=== PATIENT | female | born 1945 | race Caucasian/White ===

== ENCOUNTER 2024-02-08 15:30 | Outpatient (RCR) | payer MEDICARE, BC, SELFPAY ==
--- NOTE | 2024-02-08 16:30 | PT.OPEX ---
PT [place] [facility] Eval PT [facility] Outpatient Eval Start: 01/23/24 10:54 Freq: Status: Active Protocol: Document 02/08/24 12:40 HELADIO (Rec: 02/08/24 16:29 HELADIO [id number]) E-signed By Rebeca Maloney PT Physical Therapy Outpatient Evaluation Insurance Information Recert Due Date 05/07/24 Insurance Name Medicare B Medical Diagnosis LEFT KNEE OA Treating Diagnosis LEFT KNEE OA PREOPERATIVE VISIT Referring MD [place] Subjective Subjective PATIENT REPORTS SEVERAL YEAR Y /O OF BILATERAL KNEE PAIN WITH RIGHT REPLACED IN [place] AND LEFT KNEE SCHEDULED FOR . SHE HAS HAD CORTISONE INJECTION EVERY 3-4 MONTHS OVER THE PAST 2 YEARS AND IS NOW READY TO HAVE THE KNEE REPLACED. Date of Surgery (If applicable) 02/21/24 Current Work Status Retired Precautions Treatment Precautions/Contraindications PMHX: Arthritis, Breast cancer , Congestive heart failure, Coronary artery disease, Depression, Diabetes, Heart attack, High blood pressure, High cholesterol,Neuropathy, RIGHT TKA, BILATERAL SHOULDER PAIN Weight Bearing Status Full Weight Bearing Therapy Limitations/Systems Review Not Limited Assessment Assessment/Impression PATIENT IS A 78 YO REFERRED BY TO PROVIDE PREOPERATIVE TEACHING FOR AN UPCOMING LEFT TKA ON 02/21/24; PMHX LISTED ABOVE; EXTENSIVE DISCUSSION AND EDUCATION REGARDING PATHOPHYSIOLOGY, SURGICAL PROCEDURE, AND TYPICAL PRESENTATION POST OPERATIVE. SINCE SHE HAS HAD HER RIGHT KNEE REPLACED, WE REVIEWED HOME MODIFICATIONS, USE OF ASSISTIVE DEVICE, FALL PREVENTION, AND PAIN MGMT VIA ICE, ELEVATION AND PO PAIN MEDS. PROVIDED A LIST OF DME AND RECOMMENDED FWW, GRABBER, AND SOCK AID ALONG WITH SUCTION GRAB BARS FOR SHOWER/ BATH. PATIENT PROVIDED AN OPPORTUNITY TO ASK QUESTIONS AND PROVIDED DEMONSTRATION ALONG WITH PRACTICE USING FWW WELL A STAIR TRAINING WITH HAND RAILS. PERFORMED AND EDUCATED PATIENT REGARDING HER HEP AND INSTRUCTED HER TO BEGIN TODAY TO FAMILIARIZE HERSELF WHEN HER KNEE IS NOT SWOLLEN AND PAINFUL. PATIENT VERBALIZED UNDERSTANDING OF ALL SKILLED INSTRUCTION AND WILL FOLLOW UP POST OPERATIVELY AT ANOTHER CLINIC FOR HER CARE. Primary Functional Limitations WALKING, STAIRS, STANDING, STOOPING, KNEELING Plan of Care Rehabilitation Potential Fair Physical Therapy Goals 1. PATIENT WILL VERBALIZED UNDERSTANDING OF SYMPTOM MGMT VIA ICE, PO RX MEDS, ELEVATION AND REST. 2. PATIENT WILL DEMONSTRATE AN UNDERSTANDING OF HER PRE/POST OPERATIVE HEP. Coordination/Communication With Referral Source Treatment Plan/Direct Interventions Ice/Cold/Vasopneumatic,Self- Care/Home Management, Therapeutic Activities, Therapeutic Exercises Frequency/Duration 1 VISIT Patient Will Be Discharged From Therapy Completion of LTG(s) Discharge Plan Comments DISCHARGE TO SELF AND FOLLOW UP POST OPERATIVE ELSEWHERE Evaluation Billing Untimed Code Treatment Minutes 15 PT Eval No Charge No Complexity Low Certification Information Initial Certification Date 02/08/24 Ending Certification Date 05/07/24 Provider Signature Required Yes Provider Signature Shows Agreement With POC & Medical Necessity Physician NPI Number Write NPI# Here Physician Comment/Change : Physician Signature & Date Requested Please Sign/Date Here
== END 2024-03-26 13:20 | disposition home or self-care (01) ==
PROVIDERS: PCP Family Medicine; Visit Provider Orthopaedic Surgery
DX: M17.12 Unilateral primary osteoarthritis, left knee (principal); Z96.652 Presence of left artificial knee joint; Z51.89 Encounter for other specified aftercare
CPT/HCPCS: 97110; 97161; 97535

== ENCOUNTER 2024-02-21 09:38 | Day surgery (SDC) | payer MEDICARE, BC, SELFPAY ==
[2024-02-21] VITALS (23 sets, daily range): BP systolic 98–199; BP diastolic 45–107; PULSE 56–81; RESP 14–20; TEMP 35.8–36.9; O2SAT 95–98; BMI 36.3
[2024-02-21] MEDS: LACTATED RINGERS 1000 ML 1,000 ML 100 ML IV (09:55)
[2024-02-21] MEDS: ACETAMINOPHEN 500 MG TABLET 1000 MG PO ×3 (11:50→23:43)
[2024-02-21] MEDS: fentaNYL 100 MCG/2 ML inj IVP (12:00)
[2024-02-21] MEDS: MIDAZOLAM HCL 1 MG/ML inj IVP (12:00)
[2024-02-21] MEDS: LIDOCAINE 1% MDV 20 ML INJECTION (12:05)
[2024-02-21] MEDS: dexAMETHasone 10 MG/ML inj 4 MG IM ×2 (12:05)
[2024-02-21] MEDS: SODIUM CHLORIDE 0.9 % (FLUSH) 10 ML SYRINGE IVF (12:10)
--- NOTE | 2024-02-21 12:13 | SUR.PREOP ---
TIME?OUT:?1200 PT/RN/MDA?VERIFICATION?OF?SURGICAL?SITE,?PROCEDURE,?AND?CONSENT OBTAINED?PRIOR?TO?INVASIVE?PROCEDURE.
--- NOTE | 2024-02-21 12:27 | SUR.PREOP ---
TIME?OUT:?1200. Completed for both bilateral shoulder cortisone injections and nerve block of left knee. PT/RN/MDA?VERIFICATION?OF?SURGICAL?SITE,?PROCEDURE,?AND?CONSENT OBTAINED?PRIOR?TO?INVASIVE?PROCEDURE.
--- NOTE | 2024-02-21 13:35 | P.ORPRC_ITS ---
Procedure Note Date of procedure: 02/21/24 Procedure: PREOPERATIVE DIAGNOSIS: Left knee osteoarthritis, bilateral shoulder osteoarthritis POSTOPERATIVE DIAGNOSIS: Left knee osteoarthritis, bilateral shoulder osteoarthritis NAME OF OPERATION: Left total knee arthroplasty, bilateral shoulder glenohumeral joint steroid injection SURGEON: Rei Wang MD ALTERNATIVE FINANCING SPECIALIST: Lorraine Heredia PA-C ANESTHESIA: Spinal ESTIMATED BLOOD LOSS: 0 mL COMPLICATIONS: None SPECIMENS: None DRAINS: None PREOPERATIVE ANTIBIOTICS: Ancef 2 grams, antibiotic impregnated cement IMPLANTS: 1. J&J Attune # 5 posterior stabilized femur 2. # 5 revision CRS fixed-bearing tibia, with a 14 mm x 50 mm cemented stem 3. # 5 posterior stabilized, 8 mm fixed-bearing polyethylene 4. 38 patella INDICATIONS: The patient is a 78-year-old with a longstanding history of severe, unrelenting left knee pain secondary to end-stage (grade IV) left knee osteoarthritis. Despite appropriate nonoperative management, including activity modification, anti-inflammatories, eqlk-jsu-azmeosy pain medication, bracing, physical therapy, and injections they continue to have pain and disability. Operative intervention was offered. The risks, benefits and expected outcomes were discussed in detail. These incl uded but were not limited to: Infection, bleeding, injury to blood vessel or nerve, venous thromboembolism. All questions were answered to their satisfaction. Use of an stonecutter assistant was necessary throughout the case for patient positioning and safety, soft tissue retraction, and closure. A modifier 22 should be added to this case. With the patient's weight of 90 kg and a BMI of 36, a cemented stem was used on the tibia to reduce the risk of aseptic loosening. This increased the cost of the case. PROCEDURE: While the patient was in the block room under sedation, the posterior aspect of each shoulder was sterilely prepped. Via a posterior approach using a 22 gauge 3-1/2 inch spinal needle each glenohumeral joint was injected with 5 mL 1% lidocaine without epinephrine, 40 mg Depo-Medrol. The patient was then taken to the operating room. Spinal anesthesia was administered. The patient was placed supine on the operating table. The stonecutter assistant made sure the patient was positioned moe ropriately. The lower extremity was prepped and draped in the usual sterile fashion. The limb was exsanguinated with the Lc bandage. The pneumatic tourniquet was inflated to 300 mmHg. A standard anterior incision was made with the knee in flexion. Subcutaneous dissection was sharply taken through fascial layer #1. Full-thickness medial and lateral flaps were elevated. The stonecutter assistant retracted the soft tissues and protected them throughout the case. A standard subvastus approach was made. The patella was subluxed. The infrapatellar fat pad was preserved. The menisci and cruciate ligaments were sharply d?brided. Marginal osteophytes were d?brided with the rongeur. The drill was used to penetrate the femoral canal. The canal was aspirated and irrigated with pulse lavage. The intramedullary femoral guide was placed for a 5-degree valgus cut, removing 10 mm off the distal femur. The saw was used to make the cut. Whitesides line and the trans epicondylar axis were marked. The femoral sizing guide was pinned onto the distal femur. Three degrees of external rotation nicely parallels the transepicondylar axis. Pins were placed for posterior referencing. The four-in-one cutting guide was pinned onto the distal femur. The anterior, posterior, and chamfer cuts were made. The stonecutter assistant protected the collateral ligaments. The box cutting guide was pinned. The box cuts were made. The boxed trial was placed and was an excellent fit. Drill holes for the lugs were made. Attention was then turned to the proximal tibia. The extramedullary tibial guide was placed for a neutral varus/valgus cut with 5 degrees of posterior slope, removing 0 mm based off the medial tibial surface. The stonecutter assistant protected the collateral ligaments and the neurovascular bundle. The saw was used to make the cut. Trial components were placed. The knee was nicely balanced in both flexion and extension. The trial components were removed. The tray was placed in appropriate rotation, parallel to our tibial cutting pins. It was pinned by the stonecutter assistant and the drill x2 was used. The stemmed tibial trial was placed. The punch was used. The tray was removed. The punch was used again. Attention was then turned to the patella. [place] patellar thickness was 20.5 mm. The lobster claw resection guide was used with the 7.5 mm reddy. The saw was used to make the cut. Drill holes were made by the stonecutter assistant. The trial was placed and was an excellent fit. Cancellous surfaces were irrigated with pulse lavage and thoroughly dried by the stonecutter assistant. We cemented the tibial component, then the femoral component. We impacted the 8 mm polyethylene onto the tibial tray. The knee was brought into full extension. We then cemented the patellar component. Excessive cement was removed. The cement was allowed to harden. The knee was taken through a range of motion and was found to be nicely balanced in both flexion and extension. The patella tracks centrally. The stonecutter assistant did a three minute dilute Betadine solution soak. The stonecutter assistant irrigated the wound with 3 liters of normal saline via pulse lavage. The stonecutter assistant reapproximated the extensor mechanism with #1 Vicryl in an interrupted [id number] fashion. The stonecutter assistant then ran the extensor mechanism with a #1 PDO Stratafix. The stonecutter assistant closed the subcutaneous tissues with a 3-0 Stratafix and the skin with a running 3-0 Stratafix in a subcuticular fashion. Glue was used to seal the skin. The stonecutter assistant placed a dry dressing. Sponge and needle counts were correct x2. The patient tolerated the procedure well. There were no apparent complications. They were carefully transferred to the hospital bed and taken to the postanesthesia care unit in satisfactory condition. PLAN: The patient will be mobilized with physical therapy. Aspirin will be used for DVT prophylaxis. They will be discharged to home once medically appropriate.
--- NOTE | 2024-02-21 13:38 | W.PM.NB ---
Nerve Block Nerve Block Time Seen by Provider: 12:05 Date Seen: 02/21/24 Type of block requested by surgeon for post-operative analgesia: adductor canal Side: left Time out performed: Yes Verification of patient name: Yes Verification of date of : Yes Site marking: site marked Name of person performing procedure: Justo Continuous monitoring Was continuous monitoring of O2 sat, B/P, classroom monitor, recorded every 15 minutes?: Yes Procedure Checklist: sterile prep, needles and gloves Ultrasound guided. Images saved: Yes Medications given in 5ml increments after negative aspiration: Ropivicaine %: 0.5 mL: 15 Needle gauge: 20 Precedex (mcg): 25 Patient tolerated procedure well: Yes Additional comments: Needle noted adjacent to nerve Block Charges Block Charge (with Pro Fee): Femoral Nerve Use of Ultrasound Machine for Block: Yes- US Guidance/pain block
--- NOTE | 2024-02-21 13:39 | P.NB_ITS ---
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
--- NOTE | 2024-02-21 13:39 | W.ANESCHARGE ---
Anesthesia Charges Start Date/Time Anesthesia Start Date: 02/21/24 Anesthesia Start Time: 13:10 Stop Date/Time Anesthesia Stop Date: 02/21/24 Anesthesia Stop Time: 15:35 Summary Extremes of Age - Over 70 or under 1: MDA
--- NOTE | 2024-02-21 15:05 | CRLHL7_ITS ---
For Patients: As a result of the Cures Act, medical imaging exams and procedure reports are released immediately into your electronic medical record. You may view this report before your referring provider. If you have questions, please contact your health care provider. Indication: Postop TKA Technique: Two views left knee Findings/Impression: Hardware from a left total knee arthroplasty is in satisfactory position. Bone alignment is normal. No sign of acute fracture. Postop changes are within normal limits. Dictated by Ford Kay MD @ 02/22/2024 9:25:07 AM (Electronically Signed)
--- NOTE | 2024-02-21 15:39 | W.ANESCHARGE ---
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
--- NOTE | 2024-02-21 17:37 | PM.IMCN1 ---
Date of Consult Consult date: 02/21/24 Primary Care Provider: Ino Lomax MD Consult Narrative Narrative: Lenny Peace is a 78 year old female with past medical history of HTN, HLD, DM type 2, CAD, thoracic aorta aneurysm, COPD, hypothyroidism, GERD and history of breast cancer (Sx 11 yrs ago). In addition, patient has End-stage left knee osteoarthritis & End-stage bilateral shoulder glenohumeral joint osteoarthritis. Pt is Status post total right knee replacement (2005). Here for LTK & bilateral shoulder glenohumeral joint steroid injection today. The patient tolerated the procedure well. There were no apparent complications per the surgeon. When I met the patient postoperatively she was doing well, hemodynamically stable. Pain controlled with medications. Review of Systems Status of ROS: Reports: 6 or more systems reviewed and unremarkable except as noted in History and below (cough, chronic) Resp: Reports: cough PFSH PFSH Medical History (Updated 02/21/24 @ 18:06 by Valerie Lantigua MD) Gastroesophageal reflux ?K21.9 - Gastro-esophageal reflux disease without esophagitis (ICD-10) COPD not affecting current episode of care Coronary artery disease ?I25.10 - Atherosclerotic heart disease of [place] coronary artery without angina pectoris (ICD-10) Fibromyalgia ?M79.7 - Fibromyalgia (ICD-10) Aortic aneurysm, thoracic ?I71.20 - Thoracic aortic aneurysm, without rupture, unspecified (ICD-10) Thoracic aortic aneurysm without rupture ?I71.20 - Thoracic aortic aneurysm, without rupture, unspecified (ICD-10) Tubular adenoma ?D36.9 - Benign neoplasm, unspecified site (ICD-10) NSTEMI (non-ST elevated myocardial infarction) ?I21.4 - Non-ST elevation (NSTEMI) myocardial infarction (ICD-10) Unspecified hypothyroidism ?E03.9 - Hypothyroidism, unspecified (ICD-10) Dysphagia ?R13.10 - Dysphagia, unspecified (ICD-10) Chronic airway obstruction, not elsewhere classified ?J44.89 - Other specified chronic obstructive pulmonary disease (ICD-10) Type 2 diabetes mellitus with unspecified complications ?E11.8 - Type 2 diabetes mellitus with unspecified complications (ICD-10) Morbid obesity ?E66.01 - Morbid (severe) obesity due to excess calories (ICD-10) Neuropathy ?G62.9 - Polyneuropathy, unspecified (ICD-10) Depression ?F32.A - Depression, unspecified (ICD-10) Breast cancer ?C50.919 - Malignant neoplasm of unspecified site of unspecified female breast (ICD-10) Arthritis ?M19.90 - Unspecified osteoarthritis, unspecified site (ICD-10) Diabetes ?E11.9 - Type 2 diabetes mellitus without complications (ICD-10) Heart attack ?I21.9 - Acute myocardial infarction, unspecified (ICD-10) High cholesterol ?E78.00 - Pure hypercholesterolemia, unspecified (ICD-10) High blood pressure ?I10 - Essential (primary) hypertension (ICD-10) Congestive heart failure ?I50.9 - Heart failure, unspecified (ICD-10) Surgical History (Updated 02/21/24 @ 17:49 by Valerie Lantigua MD) H/O mastectomy ?Z90.10 - Acquired absence of unspecified breast and nipple (ICD-10) H/O hernia repair ?Z98.890 - Other specified postprocedural states (ICD-10) ?Z87.19 - Personal history of other diseases of the digestive system (ICD-10) History of cholecystectomy ?Z90.49 - Acquired absence of other specified parts of digestive tract (ICD-10) Hx of appendectomy ?Z90.49 - Acquired absence of other specified parts of digestive tract (ICD-10) H/O heart artery stent ?Z95.5 - Presence of coronary angioplasty implant and graft (ICD-10) Status post total right knee replacement (~2005) ?Z96.651 - Presence of right artificial knee joint (ICD-10) Social History (Reviewed 10/24/23 @ 14:08 by Sary Rodriguez ~ [facility], [facility]) What is your current living situation?: I presently have a place to live Problems where you live: no known problems In the past 12 months, utilities in danger of being shut off: no In past 12 months, lack of transportation kept you from medical appts, meetings, work, or getting things needed for daily living: no In the past 12 mos, have been you worried that your food would run out before you had money to buy more?: never true In the past 12 mos, the food you bought just didn't last and you didn't have money to buy more?: never true Highest level of school completed/degree received: 11th grade Smoking Status: Former smoker What tobacco products do you use: cigarettes Smoking quit date/years: >15 years ago Do you use any of these nicotine containing products: None Second hand tobacco smoke exposure: No How often do you have a drink containing alcohol: never How often do you have six or more drinks on one occasion: Never AUDIT-C Alcohol total score: 0 Non-prescribed substance use: denies use Caffeine: No How often does anyone, including family, friends and others, physically hurt you: never How often does anyone, including family, friends and others, insult or talk down to you: never How often does anyone, including family, friends and others, threaten you with harm: never How often does anyone, including family, friends and others, scream or curse at you: never service: No Meds Home Medications and Allergies Home Medications ?Medication ?Instructions ?Recorded ?Confirmed ?Type aspirin 81 mg chewable tablet 1 tab PO DAILY 02/09/22 02/21/24 History atenolol 50 mg tablet 50 mg PO DAILY 02/09/22 02/21/24 History glimepiride 2 mg tablet 2 mg PO DAILY 02/09/22 02/21/24 History magnesium oxide 400 mg (241.3 mg 400 mg PO DAILY 02/09/22 02/21/24 History magnesium) tablet omeprazole 20 mg capsule,delayed 40 mg PO DAILY 02/09/22 02/21/24 History release fenofibrate 160 mg tablet 160 mg PO DAILY 08/25/22 02/21/24 History mupirocin 2 % topical ointment 1 applic topical BID-TID 08/25/22 02/21/24 History cholecalciferol (vitamin D3) 50 50 mcg PO QDAY 10/24/23 02/21/24 History mcg (2,000 unit) tablet cyanocobalamin (vitamin B-12) 1,000 mcg PO .COMPLEX 10/24/23 02/21/24 History 1,000 mcg capsule fluticasone propionate 50 2 spray intranasal QDAY 10/24/23 02/21/24 History mcg/actuation nasal spray,suspension (Flonase Allergy Relief) lisinopril 20 0.5 tab PO DAILY 10/24/23 02/21/24 History mg-hydrochlorothiazide 25 mg tablet metformin 1,000 mg tablet 1,000 mg PO BIDWMEAL 10/24/23 02/21/24 History potassium chloride 20 mEq 20 meq PO QDAY 10/24/23 02/21/24 History tablet,extended release(part/cryst) pravastatin 20 mg tablet 20 mg PO QPM 02/21/24 02/21/24 History Allergies Allergy/AdvReac Type Severity Reaction Status Date / Time atorvastatin Allergy Mild Muscle Pain Verified 02/21/24 10:05 ondansetron Allergy Unknown Nausea Verified 02/21/24 10:05 cephalexin AdvReac Unknown Rash Verified 02/21/24 10:05 hydrocodone AdvReac Unknown Verified 02/21/24 10:05 levofloxacin AdvReac Unknown Rash Verified 02/21/24 10:05 naproxen AdvReac Unknown Verified 02/21/24 10:05 sulfamethoxazole AdvReac Unknown Verified 02/21/24 10:05 [From Sulfamethoxazole-Trimethoprim] trimethoprim AdvReac Unknown Verified 02/21/24 10:05 [From Sulfamethoxazole-Trimethoprim] Exam Narrative: Exam Narrative: Physical exam GENERAL: Pleasant, comfortable, no acute distress. HEAD AND NECK: Atraumatic, normocephalic CARDIOVASCULAR: RRR. Normal S1, S2. No murmurs. RESPIRATORY: Clear to auscultation B/L. Good air entry B/L. No wheezes or rhonchi. GASTROINTESTINAL: Not tender to palpation. NEUROLOGY: Alert, awake, oriented X 3. Normal speech. PSYCH: Normal mood, normal affect. Const: Vital Signs, click to edit/add: Vital Signs - 24 hr 02/21/24 10:47 02/21/24 12:00 02/21/24 12:05 Temperature 98.4 F Pulse Rate 66 66 60 Respiratory Rate 16 16 16 Blood Pressure 145/92 H 199/80 H 145/77 H Pulse Oximetry 95 97 97 Oxygen Delivery Me thod Room Air Nasal Cannula Nasal Cannula Oxygen Flow Rate 2 2 02/21/24 12:10 02/21/24 12:25 02/21/24 12:45 Temperature Pulse Rate 60 60 56 L Respiratory Rate 16 16 16 Blood Pressure 140/77 H 142/77 H Pulse Oximetry 97 97 98 Oxygen Delivery Me thod Nasal Cannula Nasal Cannula Nasal Cannula Oxygen Flow Rate 2 2 2 02/21/24 15:30 02/21/24 15:35 02/21/24 15:40 Temperature 97.4 F L Pulse Rate 62 60 62 Respiratory Rate 16 14 14 Blood Pressure 99/45 L 98/59 L 106/56 L Pulse Oximetry 98 97 98 Oxygen Delivery Me thod Room Air Room Air Room Air Oxygen Flow Rate 02/21/24 15:45 02/21/24 15:50 02/21/24 15:55 Temperature Pulse Rate 60 64 60 Respiratory Rate 16 16 14 Blood Pressure 107/57 L 102/59 L 127/60 Pulse Oximetry 98 97 97 Oxygen Delivery Me thod Room Air Room Air Room Air Oxygen Flow Rate 02/21/24 15:57 Temperature Pulse Rate 64 Respiratory Rate 14 Blood Pressure 122/62 Pulse Oximetry 98 Oxygen Delivery Me thod Room Air Oxygen Flow Rate Assessment and Plan Assessment and plan (1) Status post total left knee replacement: Problem comment: -Start early ambulation with physical therapy. -Start DVT prophylaxis tonight w/ Aspirin 81 mg BID. -Monitor for urine output postoperatively, bladder scan if needed. Status: Acute (2) Osteoarthritis of right shoulder: Problem comment: bilateral shoulder glenohumeral joint steroid injection at this admission Status: Acute (3) Osteoarthritis of left shoulder: Problem comment: bilateral shoulder glenohumeral joint steroid injection at this admission. Status: Acute (4) Type 2 diabetes mellitus with unspecified complications: Problem comment: Will hold her oral antidiabetic medications which are metformin 1000 b.i.d. and glimepiride 2 mg daily during this hospital stay. Will start patient on low-dose sliding scale insulin and glucose checks. Status: Acute (5) High blood pressure: Problem comment: Patient took her lisinopril-hydrochlorothiazide medication this morning. She takes atenolol 50 the evening. Her last intake was yesterday night, will resume her beta-denise tonight. Status: Acute (6) High cholesterol: Problem comment: Patient states that she stopped taking her statin few months ago because of myalgia Status: Acute (7) Coronary artery disease: Problem comment: Status post PCI with multiple stents On aspirin Denies chest pain Status: Acute (8) COPD not affecting current episode of care: Problem comment: Patient states that she is not on any inhalers at home but she mentioned that she has chronic cough She quit smoking 20 years ago Status: Acute (9) Gastroesophageal reflux: Problem comment: Will resume her omeprazole Status: Acute Plan As above Total Time Spent Total Time Spent: Time spent: Today I spent 75 minutes seeing the patient, discussing the patient with ER staff, reviewing Expanse and EPIC notes/diagnostics, discussing the care plan with our care time that includes PT/OT, pharmacy, RT and documenting my impressions and plan in the medical record.
[2024-02-21] MEDS: CEFAZOLIN 2 GM in 0.9 % SODIUM CHLORIDE Mini-bag 100 ML IVPB (18:20)
[2024-02-21] MEDS: atenoloL 50 MG TABLET PO (19:48)
[2024-02-21] MEDS: ASPIRIN 81 MG TABLET EC PO (21:59)
--- NOTE | 2024-02-21 22:27 | PC.NURSE ---
Shift Note: Pt friendly and cooperative, able to verbalize her needs. BP's mildly hypertensive, HR WNL. Pt has been afebrile with SpO2 greater than 90% on RA. Rates pain 0-1/10, she states it's not so much surgery pain as it is a burning behind my left knee. She has declined narcotics for pain control and is utilizing scheduled Tylenol for pain management at this time. Minimal use of the active ice. Despite warm blankets pt states the active ice makes her too cold. Moves well with SBA with GB and walker, she is voiding and also had a small BM. Senna held at HS. Surgical dressing to left knee C,D,&I. Business Integration Analyst noted what appeared to be burst blood vessels in the pt's right eye. The pt's stated he thought it was there prior to surgery this morning, but the pt stated she had not noticed it. She states it is not bothering her at this time. MD updated and no new orders placed. Pt plans to discharge home with her tomorrow.
[2024-02-21] MEDS: INSULIN ASPART 100 UNIT/ML 12 UNIT SUBCUT (22:56)
[2024-02-21] MEDS: INSULIN GLARGINE,HUM.REC.ANLOG 100 UNIT/ML INSULN.PEN 20 UNIT SUBCUT (23:56)
[2024-02-22] MEDS: CEFAZOLIN 2 GM in 0.9 % SODIUM CHLORIDE Mini-bag 100 ML IVPB (02:28)
[2024-02-22 02:29] VITALS: BP 122/68; PULSE 74; RESP 18; O2SAT 97
--- NOTE | 2024-02-22 06:10 | PC.NURSE ---
End of shift report [id number]: Alert and oriented x4. Pain to back of left knee reported, pain well managed with positioning and scheduled tylenol. Ambulates with SBA with walker and gait belt. Blood glucose at [id number]=794, received 20units lantus per order. Dressing to left knee clean, dry and intact. Non pitting edema noted to left knee. CMS intact, cap refill <3 sec and pedal pulses present.
[2024-02-22] MEDS: ACETAMINOPHEN 500 MG TABLET 1000 MG PO (06:23)
[2024-02-22 06:46] LABS: Hematocrit 34.7 % (33.0-51.0); Hemoglobin* 11.5 gm/dL (12.0-16.0); Immature Granulocytes Abs Auto 0.01 K/uL (0.00-0.30); Immature Granulocytes Pct Auto 0.1 %; Lymphocytes Percent Auto 8.5 % (20-44); Mean Corpuscular HGB Conc 33 gm/dL (32-36); Mean Corpuscular Hemoglobin 31 pg (26-34); Mean Corpuscular Volume 94 fL (80-100); Monocytes Percent Auto 3.3 % (0.0-11.0); Neutrophils Percent Auto 88.1 % (42.0-72.0); Platelet Count* 196 K/uL (140-440); RDW Coefficient of Variation % 13.6 % (11.5-15.5); Red Blood Count 3.68 m/uL (4.00-5.20); Slide Review Reflex No; White Blood Count* 9.06 K/uL (4.50-11.00)
[2024-02-22] MEDS: OMEPRAZOLE 20 MG CAPSULE DR 40 MG PO (06:48)
[2024-02-22 07:00] VITALS: RESP 18; O2SAT 94
[2024-02-22 07:00] LABS: Potassium* 4.3 mmol/L (3.6-5.1); Sodium* 133 mmol/L (135-149)
[2024-02-22 07:03] LABS: Blood Urea Nitrogen* 27 mg/dL (7-30); Creatinine* 1.3 mg/dL (0.5-1.5); Est. Creatinine Clearance* 28.21; Estimated Glomerular Filt Rate 42 ml/min
[2024-02-22 07:33] LABS: Glucose* 231 mg/dL (60-115)
--- NOTE | 2024-02-22 08:11 | PM.ORPN ---
Subjective Subjective Time Seen by Provider: 07:45 Date Seen: 02/22/24 Principal diagnosis: Status post left knee replacement, bilateral shoulder injections Interval history: Lenny did not get any sleep last night. She has been up and ambulating at least 7 times she states. That went well. She plans to discharge to home today. She denies nausea and vomiting. She is comfortable. Ortho Exam Narrative Exam Narrative: Alert and oriented x3. Patient is in no acute distress. Converses without labored breathing. Hearing is grossly intact. Ambulates with a walker. Examination of the left knee shows dressing is intact. Ecchymosis medial knee/distal thigh area. Mild hematoma anterior knee. Dressing is intact. No erythema or warmth or sign of infection. CMS intact left lower extremity. Calves are soft and nontender. She is able to straight leg raise. Const Vital Signs, click to edit/add: Vital Signs - 24 hr 02/21/24 10:47 02/21/24 12:00 02/21/24 12:05 Temperature 98.4 F Pulse Rate 66 66 60 Pulse Rate [Pulse Oximeter] Respiratory Rate 16 16 16 Blood Pressure 145/92 H 199/80 H 145/77 H Blood Pressure [Right Arm] Pulse Oximetry 95 97 97 Oxygen Delivery Method Room Air Nasal Cannula Nasal Cannula Oxygen Flow Rate 2 2 02/21/24 12:10 02/21/24 12:25 02/21/24 12:45 Temperature Pulse Rate 60 60 56 L Pulse Rate [Pulse Oximeter] Respiratory Rate 16 16 16 Blood Pressure 140/77 H 142/77 H Blood Pressure [Right Arm] Pulse Oximetry 97 97 98 Oxygen Delivery Method Nasal Cannula Nasal Cannula Nasal Cannula Oxygen Flow Rate 2 2 2 02/21/24 15:30 02/21/24 15:35 02/21/24 15:40 Temperature 97.4 F L Pulse Rate 62 60 62 Pulse Rate [Pulse Oximeter] Respiratory Rate 16 14 14 Blood Pressure 99/45 L 98/59 L 106/56 L Blood Pressure [Right Arm] Pulse Oximetry 98 97 98 Oxygen Delivery Method Room Air Room Air Room Air Oxygen Flow Rate 02/21/24 15:45 02/21/24 15:50 02/21/24 15:55 Temperature Pulse Rate 60 64 60 Pulse Rate [Pulse Oximeter] Respiratory Rate 16 16 14 Blood Pressure 107/57 L 102/59 L 127/60 Blood Pressure [Right Arm] Pulse Oximetry 98 97 97 Oxygen Delivery Method Room Air Room Air Room Air Oxygen Flow Rate 02/21/24 15:57 02/21/24 16:15 02/21/24 16:30 Temperature 96.5 F L 97.1 F L Pulse Rate 64 63 61 Pulse Rate [Pulse Oximeter] Respiratory Rate 14 16 16 Blood Pressure 122/62 127/59 L 101/58 L Blood Pressure [Right Arm] Pulse Oximetry 98 95 96 Oxygen Delivery Method Room Air Room Air Room Air Oxygen Flow Rate 02/21/24 16:45 02/21/24 17:00 02/21/24 17:30 Temperature Pulse Rate 80 76 78 Pulse Rate [Pulse Oximeter] Respiratory Rate 16 16 16 Blood Pressure 137/89 140/63 H 122/80 Blood Pressure [Right Arm] Pulse Oximetry 96 96 96 Oxygen Delivery Method Room Air Room Air Room Air Oxygen Flow Rate 02/21/24 18:00 02/21/24 19:00 02/21/24 20:00 Temperature 97.3 F L Pulse Rate 72 77 77 Pulse Rate [Pulse Oximeter] Respiratory Rate 16 16 16 Blood Pressure 139/107 H 151/67 H 143/76 H Blood Pressure [Right Arm] Pulse Oximetry 96 98 96 Oxygen Delivery Method Room Air Room Air Room Air Oxygen Flow Rate 02/21/24 22:00 02/21/24 23:00 02/21/24 23:00 Temperature Pulse Rate 78 Pulse Rate [Pulse Oximeter] 81 Respiratory Rate 18 20 20 Blood Pressure 156/78 H Blood Pressure [Right Arm] Pulse Oximetry 96 95 Oxygen Delivery Method Room Air Room Air Oxygen Flow Rate 02/21/24 23:00 02/22/24 02:29 Temperature 97.5 F L Pulse Rate Pulse Rate [Pulse Oximeter] 81 74 Respiratory Rate 20 18 Blood Pressure Blood Pressure [Right Arm] 137/94 H 122/68 Pulse Oximetry 95 97 Oxygen Delivery Method Room Air Room Air Oxygen Flow Rate Assessment and Plan Assessment and plan (1) Status post total left knee replacement: Problem details: 02/21/2024Kathleen Status: Acute Assessment and Plan: Plan for discharge is today to home if they meet discharge criteria. DVT prophylaxis includes aspirin 81 mg twice daily x1 month, Compression stockings as needed for swelling. Frequent ambulation, every hour throughout the day. Remove dressing in 1 week. Observe wound and phone Orthopedics with any questions or concerns Return to clinic in 1 week for a wound check Return to clinic in 6 weeks with surgeon Minimize narcotic use. Wean off and discontinue soon as possible. Activities as tolerated. No strenuous activity. Outpatient physical therapy as scheduled. Ice and elevate the operative extremity. No restriction on ice.
[2024-02-22 08:14] VITALS: BP 134/63; PULSE 66; RESP 18; TEMP 36; O2SAT 95
[2024-02-22] MEDS: INSULIN ASPART 100 UNIT/ML SUBCUT (08:17)
[2024-02-22] MEDS: METFORMIN 1,000 MG TABLET 1000 MG PO (10:28)
[2024-02-22] MEDS: ASPIRIN 81 MG TABLET EC PO (10:30)
--- NOTE | 2024-02-22 12:02 | PC.NURSE ---
shift note: IV dc'd intact Rt AC.
--- NOTE | 2024-02-22 12:44 | PC.NURSE ---
shift note: pt denies pain. drsg to lt knee c/d/i. small amount of swelling to lt knee. reviewed dc instructions and copies sent with pt at dc. Pt IV dc'd intact RT AC. Reviewed belongings list.
== END 2024-02-22 12:00 | disposition home or self-care (01) ==
LOC: OR 09:39 → MEDSURG 09:41
PROVIDERS: Family Medicine; PCP Family Medicine; Visit Provider Orthopaedic Surgery
PROC: (CPT 27447; principal; 2024-02-21 12:00)
DX: M17.12 Unilateral primary osteoarthritis, left knee (principal); M19.012 Primary osteoarthritis, left shoulder; G89.18 Other acute postprocedural pain; I10 Essential (primary) hypertension; E11.9 Type 2 diabetes mellitus without complications; Z79.84 Long term (current) use of oral hypoglycemic drugs; J44.9 Chronic obstructive pulmonary disease, unspecified; K21.9 Gastro-esophageal reflux disease without esophagitis; E78.5 Hyperlipidemia, unspecified; I25.10 Atherosclerotic heart disease of native coronary artery without angina pectoris; Z87.891 Personal history of nicotine dependence; E66.01 Morbid (severe) obesity due to excess calories; Z68.36 Body mass index [BMI] 36.0-36.9, adult
CPT/HCPCS: 27447; 20610; 01402; 36415; 64447; 64454; 73560; 76942; 82565; 82947; 82962; 84132; 84295; 84520; 85025; 85610; 97110; 97161; 97165; 97535; 99100; J2003; A9270; C1776; J0690; J1100; J1815; J2250; J2371; J2405; J2704; J2795; J3010; J7120

== ENCOUNTER 2024-02-29 14:29 | Outpatient (CLI) | payer MEDICARE, BC, SELFPAY ==
--- NOTE | 2024-02-29 14:45 | CRLHL7_ITS ---
For Patients: As a result of the Century Cures Act, medical imaging exams and procedure reports are released immediately into your electronic medical record. You may view this report before your referring provider. If you have questions, please contact your health care provider. INDICATION: Left knee bruising and swelling post TKR TECHNIQUE: Bhatti-scale two-dimensional ultrasound without and with compression as well as color-flow and spectral Doppler of the left lower extremity veins. COMPARISON: None FINDINGS: Normal compressibility of and flow within the left common femoral, superficial femoral, popliteal, posterior tibial, profunda, and greater saphenous veins is demonstrated. No thrombus is identified. There is a popliteal cyst measuring 3.1 x 2.2 x 1.8 cm. The right common femoral vein is clear. IMPRESSION: 1. Negative left lower extremity venous Doppler study. 2. 3.1 x 2.2 x 1.8 cm popliteal cyst. Dictated by Satya Oliva MD @ 03/03/2024 7:06:03 AM (Electronically Signed)
== END 2024-02-29 14:30 | disposition home or self-care (01) ==
PROVIDERS: PCP Family Medicine; Visit Provider Physician Assistant
DX: M79.89 Other specified soft tissue disorders (principal); M71.22 Synovial cyst of popliteal space [Baker], left knee; M79.606 Pain in leg, unspecified; Z96.652 Presence of left artificial knee joint
CPT/HCPCS: 93971

== ENCOUNTER 2024-11-27 05:59 | Day surgery (SDC) | payer MEDICARE, SELFPAY ==
[2024-11-27] VITALS (11 sets, daily range): BP systolic 91–180; BP diastolic 48–88; PULSE 16–67; RESP 12–63; TEMP 36.4–36.9; O2SAT 95–100; BMI 35.0
[2024-11-27] MEDS: SODIUM CHLORIDE 0.9 % (FLUSH) 10 ML SYRINGE IVF (06:45)
[2024-11-27] MEDS: LACTATED RINGERS 1000 ML 1,000 ML 100 ML IV ×2 (06:45→07:49)
--- NOTE | 2024-11-27 08:11 | P.ORPRC_ITS ---
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 Operative intervention was recommended. The risks, benefits and expected outcomes were discussed in detail. These included but were not limited to: Infection, bleeding, injury to blood vessel or nerve, venous thromboembolism. All questions were answered to their satisfaction. PROCEDURE: Spinal anesthesia was administered. The patient was placed supine on the operating room table. The left lower extremity was prepped and draped in the usual sterile fashion. The limb was exsanguinated with the Lc bandage. The pneumatic tourniquet was inflated to 300 mmHg. A standard anterolateral portal was established. The arthroscope was introduced. The working portal was established anteromedially. Diagnostic arthroscopy was performed with findings as follows: The patellar component is intact with circumferential scarring surrounding it. The femoral component is normal, the tibial polyethylene is normal. There is scarring from the inferior pole of the patella, into the notch, just proximal to the tibial post. The scarring posterior to the patellar tendon was debrided with the radiofrequency probe and shaver. A superolateral portal was placed. Then we aggressively debrided around the patellar component and posterior to the quads tendon with the shaver and radiofrequency probe. Arthroscopic instruments were removed, the portal sites were closed with a 3-0 nylon. Portals were injected with 0.25% Marcaine without epinephrine. A dry dressing was applied, the tourniquet was released. Sponge and needle counts were correct x 2. The patient tolerated the procedure well. There were no apparent complications. They were carefully transferred to the hospital bed and taken to the postanesthesia care unit in satisfactory condition. PLAN: The patient will be discharged to home. They may weightbear as tolerates. Range of motion will be unrestricted. They will follow up in the office in 2 weeks for a wound check and suture removal.
--- NOTE | 2024-11-27 08:36 | P.ANES_ITS ---
Anesthesia Charges Start Date/Time Anesthesia Start Date: 11/27/24 Anesthesia Start Time: 07:15 Stop Date/Time Anesthesia Stop Date: 11/27/24 Anesthesia Stop Time: 08:22 Summary Extremes of Age - Over 70 or under 1: SIX COLOR PRESS OPERATOR Coding CPT Codes CPT Codes: ANESTH KNEE JOINT SURGERY - 00809 ([id number]) P3 - PATIENT W/SEVERE SYS DISEASE, QX - SIX COLOR PRESS OPERATOR SVC W/ MD MED DIRECTION, QK - ENTHONE SOLDER STRIPPER 2-4 CNCRNT ANES PROC Additional Codes: Summary - Extremes of Age - Over 70 or under 1: SIX COLOR PRESS OPERATOR ([id number])
--- NOTE | 2024-11-27 08:36 | W.ANESCHARGE ---
Anesthesia Charges Start Date/Time Anesthesia Start Date: 11/27/24 Anesthesia Start Time: 07:15 Stop Date/Time Anesthesia Stop Date: 11/27/24 Anesthesia Stop Time: 08:22 Summary Extremes of Age - Over 70 or under 1: POLITICAL ANTHROPOLOGIST Coding CPT Codes CPT Codes: ANESTH KNEE JOINT SURGERY - 49799 ([id number]) P3 - PATIENT W/SEVERE SYS DISEASE, QX - POLITICAL ANTHROPOLOGIST SVC W/ MD MED DIRECTION, QK - TRAVEL TICKETING REVIEWER 2-4 CNCRNT ANES PROC Additional Codes: Summary - Extremes of Age - Over 70 or under 1: POLITICAL ANTHROPOLOGIST ([id number])
--- NOTE | 2024-11-27 10:18 | P.ANES_ITS ---
Anesthesia Charges Start Date/Time Anesthesia Start Date: 11/27/24 Anesthesia Start Time: 07:15 Stop Date/Time Anesthesia Stop Date: 11/27/24 Anesthesia Stop Time: 08:22 Summary Extremes of Age - Over 70 or under 1: MDA Coding CPT Codes CPT Codes: ANESTH KNEE JOINT SURGERY - 70361 ([id number]) QK - RADIAL ARM SAW OPERATOR 2-4 CNCRNT ANES PROC, QX - MICROGRAPHICS SERVICES SUPERVISOR SVC W/ MD MED DIRECTION, P3 - PATIENT W/SEVERE SYS DISEASE Additional Codes: Summary - Extremes of Age - Over 70 or under 1: MDA ([id number])
== END 2024-11-27 09:55 | disposition home or self-care (01) ==
LOC: OR 06:01
PROVIDERS: PCP Family Medicine; Visit Provider Orthopaedic Surgery
PROC: (CPT 29870; principal; 2024-11-27 07:15)
DX: M25.862 Other specified joint disorders, left knee (principal); Z96.652 Presence of left artificial knee joint; E11.9 Type 2 diabetes mellitus without complications; I10 Essential (primary) hypertension
CPT/HCPCS: 29877; 01400; 82962; 99100; J0690; J1100; J2250; J2371; J2704; J3490; J7120